=== PATIENT | female | born 1975 | race Caucasian/White ===

== ENCOUNTER 2020-03-12 16:32 | Emergency (ER) | payer MEDICAID ==
[~2020-03-12] VITALS: Ht 165.1 cm; Wt 73.0 kg
[2020-03-12] MEDS ORDERED: IBUPROFEN 600MG TABLET PO STA (17:17)
[2020-03-12] MEDS ORDERED: BACITRACIN ZINC OINT UDPKT TOP NR (19:30)
[2020-03-12 21:33] VITALS: BP 122/75
== END 2020-03-12 21:40 | disposition home or self-care (01) ==
LOC: EDBD 16:32 → ER 16:32
DX: S67.01XA Crushing injury of right thumb, initial encounter (principal); S61.101A Unspecified open wound of right thumb with damage to nail, initial encounter; W23.0XXA Caught, crushed, jammed, or pinched between moving objects, initial encounter; Y93.89 Activity, other specified; Y92.89 Other specified places as the place of occurrence of the external cause
CPT/HCPCS: 73140; 81025; 99283

== ENCOUNTER 2022-03-16 07:27 | Inpatient (IN) | payer MEDICAID ==
[~2022-03-16] VITALS: Ht 160 cm; Wt 81.6 kg
[2022-03-16] MEDS ORDERED: ASPIRIN 81MG TABLET PO ONE (09:15)
[2022-03-16] MEDS ORDERED: NITROGLYCERIN 0.4MG TABLET SL SL PRN (09:15)
[2022-03-16 09:38] LABS: D-DIMER 0.37 mg/L FEU (<0.50); PARTIAL THROMBOPLASTIN TIME 25.8 sec (23.4-31.0); PROTHROMBIN TIME 10.7 sec (9.6-11.0)
[2022-03-16 09:39] LABS: CHLORIDE 108 mEq/L (98-107)
[2022-03-16 09:54] LABS: BASOPHILS % 0.7 % (0.0-2.0); EOSINOPHILS % 0.9 % (0.0-5.0); HEMATOCRIT. 29.6 % (36.0-48.0); HEMOGLOBIN. 10.1 g/dL (12.0-16.0); LYMPHOCYTES % 18.8 % (20.0-50.0); MEAN CORPUSCULAR HEMOGLOBIN 30.5 pg (28.0-32.0); MEAN CORPUSCULAR VOLUME 89.5 fL (81.0-99.0); MEAN PLATELET VOLUME 8.7 fl (7.4-10.4); MONOCYTES % 4.5 % (2.0-8.0); NEUTROPHILS % 75.1 % (40.0-76.0); PLATELET 213 x1000/uL (130-400); RED BLOOD CELL COUNT 3.31 mill/uL (4.2-5.4); RED CELL DISTRIBUTION WIDTH 13.4 % (11.6-14.6)
[2022-03-16 10:16] LABS: HCG SCREEN NEGATIVE
[2022-03-16] MEDS ORDERED: MORPHINE SULFATE 4 MG/ML CPJ (NOT FOR IM USE) IV STA (14:27)
[2022-03-16] MEDS ORDERED: ONDANSETRON HCL 4MG/2ML INJ IV STA (14:27)
[2022-03-17] MEDS ORDERED: NITROGLYCERIN 0.4MG TABLET SL SL PRN (08:00)
[2022-03-17] MEDS ORDERED: MORPHINE SULFATE 4 MG/ML CPJ (NOT FOR IM USE) IV STA (09:44)
[2022-03-17] MEDS ORDERED: ONDANSETRON HCL 4MG/2ML INJ IV STA (09:44)
[2022-03-17 13:30] VITALS: BP 128/66
[2022-03-17 14:00] VITALS: BP 96/63
[2022-03-17 15:37] VITALS: BP 93/64
[2022-03-17 16:00] VITALS: BP 100/69
[2022-03-17] MEDS ORDERED: MORPHINE SULFATE 4 MG/ML CPJ (NOT FOR IM USE) IV PRN (16:30)
[2022-03-17] MEDS ORDERED: CLONIDINE 0.1MG TABLET PO PRN (16:45)
[2022-03-17] MEDS ORDERED: ONDANSETRON HCL 4MG/2ML INJ IV PRN (16:45)
[2022-03-17] MEDS ORDERED: HYDROCODONE/ACETAMINOPHEN 5/325MG TABLET PO PRN (16:45)
[2022-03-17] MEDS ORDERED: ACETAMINOPHEN 325MG TABLET PO PRN (16:45)
[2022-03-17] MEDS ORDERED: MAGNESIUM/ALUMINUM HYDROXIDE/SIMETHICONE 30ML UDC PO PRN (16:45)
[2022-03-17] MEDS ORDERED: ENOXAPARIN 40MG/0.4ML SYR SUBCUT SCH (17:15)
[2022-03-17] MEDS ORDERED: NALOXONE HCL 0.4MG/ML VIAL IV PRN (17:30)
[2022-03-17] MEDS ORDERED: IOHEXOL-350 100 ML BOTTLE ONE (18:29)
[2022-03-17 20:00] VITALS: BP 98/57
[2022-03-17] MEDS: INDOMETHACIN 25MG CAPSULE PO SCH (21:38)
[2022-03-17 22:00] VITALS: BP 102/61
[2022-03-18] VITALS (8 sets, daily range): BP systolic 85–97; BP diastolic 51–66
[2022-03-18] MEDS: INDOMETHACIN 25MG CAPSULE PO SCH ×2 (06:40→15:30)
[2022-03-18] MEDS ORDERED: OMEPRAZOLE 20MG CAPSULE EXTENDED RELEASE PO SCH (06:50)
[2022-03-18 06:54] LABS: BASOPHILS % 0.5 % (0.0-2.0); EOSINOPHILS % 3.2 % (0.0-5.0); HEMATOCRIT. 39.1 % (36.0-48.0); HEMOGLOBIN. 13.3 g/dL (12.0-16.0); MEAN CORPUSCULAR HEMOGLOBIN 29.7 pg (28.0-32.0); MEAN CORPUSCULAR VOLUME 87.2 fL (81.0-99.0); MEAN PLATELET VOLUME 8.6 fl (7.4-10.4); NEUTROPHILS % 53.3 % (40.0-76.0); PLATELET 269 x1000/uL (130-400); RED BLOOD CELL COUNT 4.48 mill/uL (4.2-5.4); RED CELL DISTRIBUTION WIDTH 13.3 % (11.6-14.6)
[2022-03-18 08:15] LABS: CHLORIDE 103 mEq/L (98-107)
[2022-03-18 08:31] LABS: HDL CHOLESTEROL 52 mg/dL (40-59); LDL CHOLESTEROL 110 mg/dL (5-100); T4 FREE 1.01 ng/dL (0.76-1.46)
[2022-03-18] MEDS ORDERED: INFLUENZA VACCINE 05/PF 0.5 ML SYRINGE IM ONE (10:00)
[2022-03-18] MEDS ORDERED: IBUP-2030 MT (13:58)
== END 2022-03-18 17:00 | disposition home or self-care (01) | DRG 198 ==
LOC: ER 07:27 → 3WST 03-17 10:32 → ENRESERV 03-17 12:19
PROVIDERS: ADMIT Internal Medicine; ATTEND Internal Medicine
DX: I24.9 Acute ischemic heart disease, unspecified (principal); I10 Essential (primary) hypertension; M19.90 Unspecified osteoarthritis, unspecified site; Z20.822 Contact with and (suspected) exposure to COVID-19; Z90.49 Acquired absence of other specified parts of digestive tract
CPT/HCPCS: 36415; 71045; 71275; 80048; 80053; 80061; 80076; 83735; 83880; 84100; 84439; 84443; 84484; 84703; 85025; 85379; 87426; 90686; 93005; 93306; 93970; 99285; C9803; J1650; J2270; J2405; Q9967